=== PATIENT | female | born 1965 | race Two or more races ===

== ENCOUNTER 2024-02-08 11:00 | Emergency (ER) | payer MEDICAID ==
[~2024-02-08] VITALS: Ht 157.5 cm; Wt 97.4 kg
[2024-02-08 11:45] VITALS: BP 126/76; PULSE 95; RESP 17; TEMP 97.8; O2SAT 96
[2024-02-08] MEDS ORDERED: AUG875T PO (12:12)
[2024-02-08] MEDS ORDERED: IBUP-1455 PO (12:12)
[2024-02-08] MEDS: KETOROLAC TROMETH 30 MG/ML 1ML VIAL IM ONE (12:18)
[2024-02-08] MEDS: cefTRIAXone SOD 1,000 MG VL IM ONE (12:18)
== END 2024-02-08 12:24 | disposition home or self-care (01) ==
LOC: ER 11:00
DX: K04.7 Periapical abscess without sinus (principal)
CPT/HCPCS: 96372; 99284; J0696; J1885